=== PATIENT | male | born 1985 | race Caucasian/White ===

== ENCOUNTER 2022-07-21 07:14 | Emergency (ER) | payer BC ==
[2022-07-21] MEDS ORDERED: predniSONE 20 MG Tab PO ONE (07:42)
[2022-07-21] MEDS ORDERED: Colchicine 0.6 MG Tab PO ONE ×2 (07:42→09:11)
[2022-07-21] MEDS ORDERED: Meloxicam 7.5 MG Tab PO ONE (07:42)
[2022-07-21] MEDS ORDERED: Famotidine 20 MG Tab PO ONE (07:43)
== END 2022-07-21 09:25 | disposition home or self-care (01) ==
LOC: JD.ED 07:14
DX: M10.061 Idiopathic gout, right knee (principal); Z88.5 Allergy status to narcotic agent
CPT/HCPCS: 36415; 80053; 84550; 85025; 86140; 99283; A9270; J7512